=== PATIENT | female | born 1935 | race African-American/Black ===

== ENCOUNTER 2022-05-31 13:57 | Emergency (ER) | payer OTHER, MEDICAID ==
[~2022-05-31] VITALS: Ht 157.5 cm; Wt 59.0 kg
[2022-05-31 14:05] VITALS: BP_SYST 224
[2022-05-31 15:44] LABS: BASOPHILS # (AUTO) 0.1 K/uL (0.0-0.2); BASOPHILS % (AUTO) 1.2 % (0.0-2.0); EOSINOPHILS # (AUTO) 0.3 K/uL (0.0-0.4); EOSINOPHILS % (AUTO) 3.4 % (0.0-4.0); HEMATOCRIT 39.9 % (36-48); HEMOGLOBIN 13.7 g/dL (12.0-16.0); LYMPHOCYTES # (AUTO) 1.9 K/uL (1.0-5.5); LYMPHOCYTES % (AUTO) 22.8 % (20.5-51.5); MEAN CORPUSCULAR HEMOGLOBIN 32 pg (27-31); MEAN CORPUSCULAR HGB CONC 34 % (32-36); MEAN CORPUSCULAR VOLUME 93 fL (79.0-98.0); MONOCYTES # (AUTO) 0.4 K/uL (0.0-1.0); MONOCYTES % (AUTO) 5.2 % (1.7-9.3); NEUTROPHILS # (AUTO) 5.7 K/uL (1.8-7.7); NEUTROPHILS % (AUTO) 67.4 % (40.0-70.0); PLATELET COUNT (AUTO) 257 K/uL (130-430); WHITE BLOOD COUNT (AUTO) 8.5 K/uL (4.8-10.8)
[2022-05-31 15:46] LABS: ANION GAP 9 (5-15); CALCIUM 9.3 mg/dL (8.4-11.0); CHLORIDE 107 mmol/L (98-107); CREATININE 0.82 mg/dL (0.55-1.30); GLUCOSE 99 mg/dL (70-99); UREA NITROGEN, BLOOD 25 mg/dL (8-21)
[2022-05-31 15:53] LABS: ALANINE AMINOTRANSFERASE 17 U/L (12-78); ALBUMIN 3.6 g/dL (3.4-4.8); ASPARTATE AMINOTRANSFERASE 15 U/L (10-37); TOTAL BILIRUBIN 0.5 mg/dL (0.0-1.0)
--- NOTE | 2022-05-31 16:30 | NUR ---
PATIENT OLACE IN BED 2 ON CARDIAC MOINTOR, AWAITING FOR EDP FOR INITIAL ASSESSMENT.
--- NOTE | 2022-05-31 16:35 | NUR ---
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
[2022-05-31] MEDS ORDERED: cloNIDine HCL 0.1 MG TABLET PO ONE (16:45)
[2022-05-31] MEDS ORDERED: hydrALAZINE HCL 20 MG/ML VIAL IVP ONE (16:45)
--- NOTE | 2022-05-31 16:53 | NUR ---
PATIENT TAKEN TO CT SCAN.
[2022-05-31] MEDS ORDERED: LORazepam 2 MG/ML VIAL IVP ONE (17:45)
--- NOTE | 2022-05-31 18:15 | NUR ---
all result back edp reassess patient and d/c home with instruction.
[2022-05-31 18:16] VITALS: BP_SYST 144
--- NOTE | 2022-05-31 18:18 | NUR ---
Patient given written and verbal discharge instructions and verbalizes understanding. ER MD discussed with patient the results and treatment provided. Patient in stable condition. ID arm band removed. IV catheter removed intact and dressing applied, no active bleeding. Rx of none given. Patient educated on pain management and to follow up with PMD. Pain Scale 0. Opportunity for questions provided and answered. Medication side effect fact sheet provided.
== END 2022-05-31 18:18 | disposition home or self-care (01) ==
LOC: SED 13:57 → EDBD 13:57 → SED 18:18
DX: I10 Essential (primary) hypertension (principal); R42 Dizziness and giddiness; Z88.5 Allergy status to narcotic agent; Z91.041 Radiographic dye allergy status; Z79.899 Other long term (current) drug therapy
CPT/HCPCS: 99291; 96374; 70450; 96375; 80053; 83880; 85025; 84484; 36415; 93005; 71045; 76376; J0360; J2060

== ENCOUNTER 2023-11-06 20:41 | Emergency (ER) | payer OTHER, MEDICAID ==
[~2023-11-06] VITALS: Ht 149.9 cm; Wt 59.0 kg
[2023-11-06 21:00] VITALS: PULSE 78; RESP 20; TEMP 97.6; O2SAT 98
[2023-11-06] MEDS ORDERED: MORPHINE 4 MG INJ. 4 MG/ML VIAL ONE (22:37)
[2023-11-06] MEDS: MORPHINE 4 MG INJ. 4 MG/ML VIAL IM ONE (22:38)
[2023-11-06] MEDS: MORPHINE 4 MG INJ. 4 MG/ML VIAL IVP ONE (22:39)
[2023-11-06] MEDS ORDERED: CELE100C PO (22:56)
[2023-11-06] MEDS: ONDANSETRON 4 MG ODT TAB PO ONE (23:06)
[2023-11-06 23:09] VITALS: BP_SYST 111; PULSE 72; RESP 22; TEMP 97.3; O2SAT 96
== END 2023-11-06 23:08 | disposition home or self-care (01) ==
LOC: SED 20:41
DX: M19.012 Primary osteoarthritis, left shoulder (principal); M25.512 Pain in left shoulder; I10 Essential (primary) hypertension; Z91.040 Latex allergy status
CPT/HCPCS: 99283; 29105; 73030; 96372; Q0162; J2270

== ENCOUNTER 2023-11-07 21:57 | Emergency (ER) | payer OTHER, MEDICAID ==
[~2023-11-07] VITALS: Ht 147.3 cm; Wt 52.2 kg
[~2023-11-07 21:57] MED LIST: CELE100C PO
[2023-11-07 22:20] VITALS: BP_SYST 155; PULSE 85; RESP 20; TEMP 97.3; O2SAT 100
[2023-11-07] MEDS: MORPHINE 4 MG INJ. 4 MG/ML VIAL IM ONE (23:04)
[2023-11-07] MEDS: ONDANSETRON 4 MG ODT TAB PO ONE (23:04)
[2023-11-08 00:38] VITALS: BP_SYST 155; PULSE 85; RESP 20; TEMP 97.3; O2SAT 100
== END 2023-11-07 23:40 | disposition home or self-care (01) ==
LOC: SED 21:57
DX: M19.012 Primary osteoarthritis, left shoulder (principal); I10 Essential (primary) hypertension; Z90.49 Acquired absence of other specified parts of digestive tract; Z91.040 Latex allergy status; Z79.899 Other long term (current) drug therapy
CPT/HCPCS: 99283; 96372; Q0162; J2270